=== PATIENT | male | born 1975 | race Caucasian/White ===

== ENCOUNTER → 2022-07-16 | Outpatient (CLI) | payer OTHER ==
[~2022-07-16] MED LIST: ACHD5005 PO; ALBU17AE3 IH; ALBU8.5H2 IH; ALLP100T PO; AMOX500C2 PO; AZIT-21 PO; BENZ200C25 PO; BSP10T PO; BUTA-234 PO; CEFD300C3 PO; CEFU500T5 PO; CEPH500C PO; CLIN300C3 PO; CLON1TAB36 PO; CPR500T PO; CYCL10TA9 PO; DESV100T; DESV50TA PO; DIVA250T4 PO; DOXY100C2 PO; FLUO20CA25 PO; FLUO40CA PO; GUAI118L10 PO; HYDR-2890 PO; HYDR-34 PO; HYDR-3458 PO; HYDR-3720 PO; HYDR1TAB PO; HYDR50TA76 PO; IBP800T PO; IBUP800T26 PO; K-ROCEP1PB IV; KETO-22 PO; LEVO500T69 PO; LISI-593 PO; LISI10TA; LISI1TAB6 PO; LISI20TA2; LISINOPRIL; LISINOPRIL PO; LORA-794 PO; LTH450TCR PO; METH4TAB PO; METR500T PO; NAPR-243 PO; NAPR220C11 PO; NAPR550T PO; NF-TRA/ACE PO; ONDN4T PO; OXYC-12 PO; PENI500T PO; PNT40TEC PO; PRD20T PO; QUET25TA PO; SCR1T PO; SEROQUEL PO; SILV25CR TP; SULF1TAB38 PO; TPR100T PO; TRAM50TA2 PO; TRAZ300T3 PO; TRM50T PO; TRZ50T PO; [UNRECOGNIZED DRUG - OTHER] IV
--- NOTE | 2022-07-16 13:59 | Diagnostic Imaging Report ---
PROCEDURE: MRI lumbar spine. TECHNIQUE: Multiplanar, multisequence MRI of the lumbar spine was performed without contrast. INDICATION: Back pain status post injury. COMPARISON: None. FINDINGS: For the purposes of this exam, last well-formed disc space is denoted the L5-S1 level. Evaluation of the static alignment shows mild grade 1 retrolisthesis at L5-S1. There is no evidence of jumped facets. Vertebral body heights are maintained. There is no acute fracture. Evaluation of the marrow signal demonstrates moderate Modic type changes of the adjacent endplates at the L5-S1 level. There is also advanced intervertebral disc height loss at this level. Remaining intervertebral disc heights are fairly well maintained. Visualized portions of the distal cord are unremarkable. Conus terminates at approximately the L1-L2 level. No abnormal intrathecal filling defects are seen. Pre- and para-vertebral soft tissue structures are unremarkable. Axial images demonstrate the following: L1-L2 through L4-L5: There is no large disc bulge or focal protrusion. There is no significant spinal canal or neural foraminal stenosis. L5-S1: There is broad-based posterior disc osteophyte complex formation with mild bilateral facet arthropathy. As a result, there is minimal narrowing of the spinal canal and mild narrowing of the bilateral neural foramina. IMPRESSION: 1. No acute fracture or dislocation of the lumbar spine. 2. Degenerative changes at the L5-S1 level as above. Dictated by: Dictated on workstation # [id number]
== END ==
LOC: RAD 12:41
PROVIDERS: ATTEND Internal Medicine
DX: M47.27 Other spondylosis with radiculopathy, lumbosacral region (principal)
CPT/HCPCS: 72148

== ENCOUNTER 2022-08-19 15:08 | Outpatient (RCR) | payer OTHER | END 2022-08-20 | disposition home or self-care (01) | PROVIDERS: ATTEND Registered Nurse | DX: M51.16 Intervertebral disc disorders with radiculopathy, lumbar region (principal); M47.26 Other spondylosis with radiculopathy, lumbar region ==

== ENCOUNTER 2022-09-15 13:40 | Outpatient (RCR) | payer OTHER | END 2022-09-19 | disposition home or self-care (01) | PROVIDERS: ATTEND Registered Nurse | DX: M51.16 Intervertebral disc disorders with radiculopathy, lumbar region (principal); M47.26 Other spondylosis with radiculopathy, lumbar region ==

== ENCOUNTER 2022-10-19 14:42 | Outpatient (RCR) | payer OTHER | END 2022-10-20 | disposition home or self-care (01) | PROVIDERS: ATTEND Registered Nurse | DX: M51.16 Intervertebral disc disorders with radiculopathy, lumbar region (principal); M47.26 Other spondylosis with radiculopathy, lumbar region; I10 Essential (primary) hypertension ==

== ENCOUNTER 2022-10-22 14:47 | Outpatient (RCR) | payer OTHER | END 2022-10-22 16:27 | disposition home or self-care (01) | PROVIDERS: ATTEND Registered Nurse | DX: M51.16 Intervertebral disc disorders with radiculopathy, lumbar region (principal); M47.26 Other spondylosis with radiculopathy, lumbar region ==